=== PATIENT | female | born 1965 | race Caucasian/White ===

== ENCOUNTER 2016-11-24 11:41 | Outpatient (CLI) | payer OTHER, SELFPAY ==
[2016-11-24 12:12] LABS: Hemoglobin A1c 5.6 % (4.0-6.0)
[2016-11-24 12:44] LABS: ALT (SGPT) 48 U/L (8-55); AST (SGOT) 36 U/L (5-34); Albumin 4.2 g/dL (3.5-5.0); Alkaline Phosphatase 98 U/L (40-150); Anion Gap 19 mmol/L (10-20); BUN (Urea Nitrogen) 17 mg/dL (9.8-20.1); Bilirubin, Total 0.5 mg/dL (0.2-1.2); Calc. Creatinine Clearance 0 mL/min (70-130); Calcium 9.5 mg/dL (7.8-10.44); Carbon Dioxide 21 mmol/L (22-29); Cardiac Risk 2.7 (Less than 4.5); Chloride 102 mmol/L (98-107); Cholesterol 217 mg/dl (< 200 Desired); Estimated GFR-MDRD 66; Globulin 3.5 g/dL (2.4-3.5); Glucose 131 mg/dL (70-105); HDL Cholesterol 81 mg/dL (>60 Neg Risk); LDL Cholesterol, Calculated 121 mg/dL; Potassium 5.2 mmol/L (3.5-5.1); Protein, Total 7.7 g/dL (6.0-8.3); Sodium 137 mmol/L (136-145); Triglycerides 77 mg/dL (Less than 150)
[2016-11-24 12:51] LABS: Free T4 (Free Thyroxine) 0.99 ng/dL (0.70-1.48); Thyroid Stimulating Hormone 4.9656 uIU/mL (0.35-4.94)
== END 2016-11-24 11:42 | disposition home or self-care (01) ==
LOC: MADLABBHPM 11:41
PROVIDERS: ATTEND Family Medicine
DX: E78.5 Hyperlipidemia, unspecified (principal); F34.1 Dysthymic disorder; F41.9 Anxiety disorder, unspecified
CPT/HCPCS: 36415; 80053; 80061; 83036; 84439; 84443